=== PATIENT | female | born 1980 | race Asian ===

== ENCOUNTER 2024-07-28 17:31 | Emergency (ER) | payer OTHER ==
[~2024-07-28] VITALS: Ht 170.2 cm; Wt 68.0 kg
[2024-07-28 21:03] VITALS: BP 124/79; TEMP 98.5; O2SAT 99
[2024-07-28] MEDS ORDERED: CLOT24CR2 TP (21:09)
[2024-07-28] MEDS ORDERED: CEPH500C2 PO (21:09)
== END 2024-07-28 21:23 | disposition home or self-care (01) ==
LOC: ER 17:50
DX: B35.4 Tinea corporis (principal); Z90.49 Acquired absence of other specified parts of digestive tract